=== PATIENT | female | born 1985 | race Two or more races ===

== ENCOUNTER 2018-11-11 04:57 | Emergency (ER) | payer OTHER ==
[~2018-11-11] VITALS: Ht 177.8 cm; Wt 142.9 kg
[2018-11-11 04:59] VITALS: BP 133/81
[2018-11-11] MEDS ORDERED: HYDR-3164 PO (05:24)
--- NOTE | 2018-11-11 06:06 | PHYS DOC ---
Past Medical History Past Medical History: Kidney Stone Past Surgical History: Other Additional Past Surgical Histo: KIDNEY STONE REMOVAL Alcohol Use: None Drug Use: None Adult General Chief Complaint Chief Complaint: UPPER EXTREMITY PAIN HPI HPI Patient is a 33 year old female presenting with wrist pain on and off for 2 years ago worse 2 weeks ago no fever no injury. She is using meloxicam from primary care doctor. He is getting worse it is sharp severe localized to the dorsum of the wrist. Review of Systems Review of Systems ] Allergies Allergies Allergies Coded Allergies Type Severity Reaction Last Updated Verified No Known Drug Allergies 11/11/18 No Physical Exam Physical Exam Constitutional: Well developed, well nourished, no acute distress, non-toxic appearance. [] HENT: Normocephalic, atraumatic, bilateral external ears normal, oropharynx moist, no oral exudates, nose normal. [] Eyes: PERRLA, EOMI, conjunctiva normal, no discharge. [] Neck: Normal range of motion, no tenderness, supple, no stridor. [] Pulmonary: Normal respiratory effort no increased work of breathing no obvious chest wall trauma+ Back: No tenderness, no CVA tenderness. [] Extremities: Reduced range of motion some stiffness there is to palpation of the left wrist no erythema no induration radial pulses intact. No definite evidence of ganglion cyst Neurologic: Alert and oriented X 3, normal motor function, normal sensory function, no focal deficits noted. [] Psychologic: Affect normal, judgement normal, mood normal. 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 (See chart for details) Patient has fairly advanced arthritis at this young age unclear etiology he extensive outpatient workup of her back to primary care doctor given short course of pain control as well as a wrist splint to help her return precautions discussed she voiced understanding this does not seem that a septic joint based on timeline examination etc. Dragon Disclaimer Dragon Disclaimer This electronic medical record was generated, in whole or in part, using a voice recognition dictation system. Departure Departure Impression: Primary Impression: Wrist pain Disposition: 01 HOME, SELF-CARE Condition: STABLE Patient Instructions: Wrist Pain Scripts Hydrocodone/Apap 5-325 (NORCO 5-325 TABLET) 1 Each Tablet 1 EACH PO PRN Q6HRS PRN for PAIN, #15 as needed for pain Prov: DEBBIE SEGURA MD 11/11/18 DEBBIE SEGURA MD Nov 11, 2018 06:06
--- NOTE | 2018-11-11 07:49 | RAD ---
Indication: Atraumatic pain for 3 years. TECHNIQUE: 3 views of the left wrist COMPARISON: There is exam from 10/25/2018. FINDINGS: Osteopenia. No acute fracture or dislocation. Significant radiocarpal joint space narrowing seen. Mild wrist swelling. IMPRESSION: Moderate radiocarpal joint arthritis. Electronically signed by: Ramos Song DO (11/11/2018 7:45 AM) [facility]
== END 2018-11-11 06:10 | disposition home or self-care (01) ==
LOC: ER 04:57
DX: M19.032 Primary osteoarthritis, left wrist (principal); M85.842 Other specified disorders of bone density and structure, left hand
CPT/HCPCS: 29125; 73110; 99283-25

== ENCOUNTER 2020-05-25 18:39 | Emergency (ER) | payer OTHER ==
[~2020-05-25] VITALS: Ht 177.8 cm; Wt 154.5 kg
[~2020-05-25 18:39] MED LIST: HYDR-3164 PO
[2020-05-25 19:16] VITALS: BP 146/94
[2020-05-25] MEDS ORDERED: IBUPROFEN 200 MG TABLET. PO ONE ×2 (19:38→19:45)
[2020-05-25] MEDS ORDERED: IBUPROFEN 400 MG TABLET. PO ONE (19:45)
--- NOTE | 2020-05-25 20:09 | RAD ---
Exam: Left ankle 3 views INDICATION: Lateral right ankle pain and swelling TECHNIQUE: Frontal, lateral and oblique views of the left ankle Comparisons: None FINDINGS: Diffuse soft tissue swelling at the left ankle. Bone mineralization is normal. No acute or healed fractures. Joint spaces are well-maintained. IMPRESSION: Soft tissue swelling surrounding the ankle without acute osseous abnormality identified. Electronically signed by: Thu Osuna MD (05/25/2020 8:06 PM) [id number]
--- NOTE | 2020-05-25 20:29 | PHYS DOC ---
Past Medical History Past Medical History: Hypothyroid, Kidney Stone, Other Additional Past Medical Histor: obesity (SPENCER NORMAN APRN) Past Surgical History: Other Additional Past Surgical Histo: KIDNEY STONE REMOVAL (SPENCER NORMAN APRN) Smoking Status: Never Smoker Alcohol Use: None Drug Use: None (SPENCER NORMAN APRN) General Adult EDM: Chief Complaint: ANKLE PROBLEM HPI: HPI: Patient is a 35 year old female who presents to the emergency department with complaints of right lateral ankle pain and swelling after injuring herself while playing kickball today. Patient states she rolled her ankle laterally. She denies any numbness, tingling, or decreased range of motion. Patient states the pain increases when she puts weight on her leg. Patient states she has not taken anything prior to arrival, the injury occurred at 1700. She currently rates pain a 10 out of 10 on pain scale, she denies any radiation of the pain, there are no alleviating factors the pain is worse with weightbearing. (SPENCER NORMAN APRN) Review of Systems: Review of Systems: Complete review of systems negative unless otherwise documented in the HPI (SPENCER NORMAN APRN) Heart Score: Risk Factors: Risk Factors: DM, Current or recent (<one month) smoker, HTN, HLP, family history of CAD, obesity. Risk Scores: Score 0 - 3: 2.5% MACE over next 6 weeks - Discharge Home Score 4 - 6: 20.3% MACE over next 6 weeks - Admit for Clinical Observation Score 7 - 10: 72.7% MACE over next 6 weeks - Early Invasive Strategies (SPENCER NORMAN APRN) Current Medications: Current Medications Medications (Trade) Dose Ordered Sig/Chevy Start Time Stop Time Status Last Admin Dose Admin Ibuprofen (Motrin) 600 mg 1X ONCE 05/25/20 19:45 05/25/20 19:46 DC (SPENCER NORMAN APRN) Allergies: Allergies: Allergies Coded Allergies Type Severity Reaction Last Updated Verified acetaminophen Allergy Severe "my face swells" 05/25/20 Yes hydrocodone Allergy Severe "my face swells" 05/25/20 Yes (SPENCER NORMAN APRN) Physical Exam: PE: Constitutional: Well developed, well nourished, no acute distress, non-toxic appearance, obese. [] HENT: Normocephalic, atraumatic, bilateral external ears normal, nose normal. [] Eyes: PERRLA, EOMI, conjunctiva normal, no discharge. [] Neck: Normal range of motion, no stridor. [] Cardiovascular:Heart rate regular rhythm Lungs & Thorax: Respirations even and unlabored, no retractions, no respiratory distress Skin: Warm, dry, no erythema, no rash. [] Extremities: Right lateral ankle: Tenderness to palpation without crepitus or obvious deformity, 1+ edema, no cyanosis, ROM intact, 2+ pedal pulse, sensation intact Neurologic: Alert and oriented X 3, no focal deficits noted. [] Psychologic: Affect normal, judgement normal, mood normal. [] (SPENCER NORMAN APRN) Current Patient Data: Vital Signs: Vital Signs Date Time Temp Pulse Resp B/P (MAP) Pulse Ox O2 Delivery O2 Flow Rate FiO2 05/25/20 19:16 98.8 77 18 146/94 (111) 96 Room Air 98.8 (SPENCER NORMAN APRN) EKG: EKG: [] (SPENCER NORMAN APRN) Radiology/Procedures: Radiology/Procedures: PROCEDURE: ANKLE LEFT 3V Exam: Left ankle 3 views INDICATION: Lateral right ankle pain and swelling TECHNIQUE: Frontal, lateral and oblique views of the left ankle Comparisons: None FINDINGS: Diffuse soft tissue swelling at the left ankle. Bone mineralization is normal. No acute or healed fractures. Joint spaces are well-maintained. IMPRESSION: Soft tissue swelling surrounding the ankle without acute osseous abnormality identified.[] (SPENCER NORMAN APRN) Course & Med Decision Making: Course & Med Decision Making Pertinent Labs and Imaging studies reviewed. (See chart for details) [] (SPENCER NORMAN APRN) Dragon Disclaimer: Dragon Disclaimer: This electronic medical record was generated, in whole or in part, using a voice recognition dictation system. (SPENCER NORMAN APRN) Departure Departure Impression: Primary Impression: Acute right ankle pain Disposition: 01 HOME, SELF-CARE Condition: STABLE Referrals: NO PCP (PCP) AP GALVAN MD Patient Instructions: Ankle Pain Additional Instructions: You may take Tylenol or ibuprofen as needed for pain.. Recommend application of ice, elevation, and rest of affected extremity. Wear the splint that was placed as needed for comfort. Follow-up with Dr. Galvan if symptoms persist. Return to the ER if your symptoms worsen. Justicifation of Admission Dx: Justifications for Admission: Justification of Admission Dx: N/A (SPENCER NORMAN APRN) Splinting Splinting : Location: Right ankle Pre-Made Type: velcro (Air splint and Moises wrap) Pre-Proc Neuro Vasc Exam: normal Post-Proc Neuro Vasc Exam: normal, unchanged from pre-exam (SPENCER NORMAN APRN) Attending Signature Attending Signature I have participated in the care of this patient and I have reviewed and agree with all pertinent clinical information above including history, exam, and recommendations. (ALYSON BIRD DO) SPENCER NORMAN APRN May 25, 2020 20:29 ALYSON BIRD DO May 25, 2020 20:32
== END 2020-05-25 20:39 | disposition home or self-care (01) ==
LOC: ER 18:39
DX: M25.571 Pain in right ankle and joints of right foot (principal); G89.11 Acute pain due to trauma; E03.9 Hypothyroidism, unspecified; E66.9 Obesity, unspecified; Z68.42 Body mass index [BMI] 45.0-49.9, adult; Z88.5 Allergy status to narcotic agent; Z88.6 Allergy status to analgesic agent; W01.0XXA Fall on same level from slipping, tripping and stumbling without subsequent striking against object, initial encounter; Y93.6A Activity, physical games generally associated with school recess, summer camp and children; Y92.098 Other place in other non-institutional residence as the place of occurrence of the external cause; Y99.8 Other external cause status
CPT/HCPCS: 29515; 73610; 99283; L4350

== ENCOUNTER 2021-12-12 23:29 | Emergency (ER) | payer OTHER ==
[~2021-12-12] VITALS: Ht 177.8 cm; Wt 120.0 kg
[2021-12-13 00:36] VITALS: BP 141/94
[2021-12-13] MEDS ORDERED: IBUPROFEN 400 MG TABLET. PO ONE (00:45)
[2021-12-13] MEDS ORDERED: ONDANSETRON ODT 4 MG TAB.RAPDIS. PO ONE (00:45)
[2021-12-13 01:30] LABS: INFLUENZA A PATIENT NEGATIVE (NEGATIVE); INFLUENZA B PATIENT NEGATIVE (NEGATIVE)
[2021-12-13] MEDS ORDERED: ONDA-84 PO (02:09)
--- NOTE | 2021-12-13 02:09 | PHYS DOC ---
Past Medical History Past Medical History: Hypothyroid, Kidney Stone, Other Additional Past Medical Histor: obesity,SJOGREN, RA Past Surgical History: Other Additional Past Surgical Histo: KIDNEY STONE REMOVAL Smoking Status: Never Smoker Alcohol Use: None Drug Use: None Adult General Chief Complaint Chief Complaint: FLU SYMPTOM HPI HPI The patient is a 36-year-old female with a history of obesity and Sjogren's syndrome. She has had 1 of 2 doses of the COVID vaccination and did test positive but was asymptomatic for COVID about 2 months ago after a close contact exposure. She presents for evaluation of 4 days of chills, upper respiratory congestion, rhinorrhea, dry cough, sore throat, fatigue, malaise, body aches and intermittent nonbloody vomiting and diarrhea. No associated esther fevers, hematemesis, hematochezia or melena, shortness of breath or chest pain of any kind, abdominal pain of any kind, flank pain, midline back pain, dysuria, hematuria, polyuria or oliguria, changes in bowel habits. Patient notes that s he is currently on her menstrual period and that flow has been normal for her so far. Vital signs are appropriate here, patient is ambulatory into the emergency department with a narrow, steady gait and she is in no acute distress. Review of Systems Review of Systems A 12 point review of systems was completed and was negative except where noted in HPI above. Current Medications Current Medications Current Medications Medications (Trade) Dose Ordered Sig/Chevy Start Time Stop Time Status Last Admin Dose Admin Ibuprofen (Motrin) 800 mg 1X ONCE 12/13/21 00:45 12/13/21 00:46 DC 12/13/21 01:53 800 MG Ondansetron HCl (Zofran Odt) 4 mg 1X ONCE 12/13/21 00:45 12/13/21 00:46 DC 12/13/21 01:54 4 MG Allergies Allergies Allergies Coded Allergies Type Severity Reaction Last Updated Verified acetaminophen Allergy Severe "my face swells" 05/25/20 Yes hydrocodone Allergy Severe "my face swells" 05/25/20 Yes Physical Exam Physical Exam Younger black female appearing nontoxic and in no acute distress. Head is normocephalic and atraumatic. Neck is supple and nontender. Patient ranges neck fully in all dimensions without discomfort or distress and there is no stiffness/rigidity/meningismus seen. Oropharynx is moist. There is mild nasal mucus bilaterally. Tympanic membranes clear bilaterally. No EAC or mastoid process abnormalities bilaterally. Lungs are clear to auscultation at all stations. There is a normal S1 and S2 without rubs or gallops and capillary refill is appropriate, less than 2 seconds globally. Abdomen is soft, nontender and nondistended. Skin is warm and dry without cyanosis, clubbing or edema. Psychiatrically, the patient demonstrates appropriate mood and affect and is alert. Evaluation of the extremities reveals BUEs and BLEs neurovascularly intact distally with strength out of 5, sensation intact light touch in all nerve distributions, radial, DP and PT pulses 2+ and equal bilaterally, capillary refill less than 2 seconds, hands and feet warm and well-perfused. No dependent peripheral edema distally. No calf tenderness swelling bilaterally. Homans test is negative bilaterally. Current Patient Data Vital Signs Vital Signs Date Time Temp Pulse Resp B/P (MAP) Pulse Ox O2 Delivery O2 Flow Rate FiO2 12/13/21 00:36 98.7 64 16 141/94 (110) 98 Room Air 98.7 Lab Values Laboratory Tests Test 12/13/21 01:10 Influenza Type A Antigen Negative (NEGATIVE) Influenza Type B Antigen Negative (NEGATIVE) SARS-CoV-2 Antigen (Rapid) Negative (NEGATIVE) EKG EKG [] Radiology/Procedures Radiology/Procedures [] Course & Med Decision Making Course & Med Decision Making Well-appearing 36-year-old female presenting for 4 days of flulike symptoms. Vital signs and clinical examination are reassuring. COVID and flu swabs are negative. Most likely upper respiratory viral illness other than COVID or influenza. Will discharge home with instructions to continue ibuprofen as needed and some Zofran for nausea. She is to follow-up with primary doctor in the next 1 to 2 days and understands that if she feels worse instead of better or develops other new symptoms of concern that she should return to the emergency department right away for reevaluation. All questions are answered. Dragon Disclaimer Dragon Disclaimer This electronic medical record was generated, in whole or in part, using a voice recognition dictation system. Departure Departure Impression: Primary Impression: Upper respiratory infection, viral Disposition: HOME / SELF CARE / HOMELESS Condition: IMPROVED Referrals: JOHN FLOR MD (PCP) Patient Instructions: Upper Respiratory Infection, Adult Additional Instructions: Follow-up very closely with your primary care doctor in the office in the next 1 to 2 days for a reevaluation of your symptoms and a discussion of next best steps in care. Drink plenty of fluids to stay hydrated and get plenty of rest. You may take ibuprofen every 6 hours as needed for discomfort (the right dose for you is 600 mg, which is three regular strength 200mg pills, every 6 hours). We are prescribing Zofran which is an antinausea medicine you which you may take every 8 hours as needed for nausea/vomiting. Return to the emergency department right away for worsening symptoms of any kind or with any other new symptoms of concern. Scripts Ondansetron Hcl (ONDANSETRON HCL) 4 Mg Tablet 1 TAB PO PRN Q6HRS, #10 TAB 1 Refill Prov: RONEY ESCUDERO MD 12/13/21 RONEY ESCUDERO MD Dec 13, 2021 02:09
--- NOTE | 2021-12-13 15:14 | NUR ---
IP: Informed pt of positive covid test and the need to quarantine for 10 days. Pt verbalized understanding.
== END 2021-12-13 02:21 | disposition home or self-care (01) ==
LOC: ER 23:29
DX: U07.1 COVID-19 (principal); J06.9 Acute upper respiratory infection, unspecified; E03.9 Hypothyroidism, unspecified; E66.9 Obesity, unspecified; Z87.442 Personal history of urinary calculi; Z68.38 Body mass index [BMI] 38.0-38.9, adult; Z88.5 Allergy status to narcotic agent; Z88.8 Allergy status to other drugs, medicaments and biological substances
CPT/HCPCS: 87426; 87428; 99283; U0003; U0005